=== PATIENT | female | born 1985 | race Caucasian/White ===

== ENCOUNTER 2016-08-08 10:56 | Emergency (ER) | payer OTHER ==
[2016-08-08] MEDS ORDERED: fentaNYL 100 MCG/2 ML INJ IVP ONE (11:53)
[2016-08-08] MEDS ORDERED: ONDANSETRON 4 MG/2 ML VIAL IVP ONE (11:54)
[2016-08-08] MEDS ORDERED: HYDROmorphONE/DILAUDID 1 MG/ML SYR IVP ONE (12:29)
[2016-08-08] MEDS ORDERED: PROPOFOL 200 MG/20 ML VIAL ONE (12:46)
[2016-08-08] MEDS ORDERED: fentaNYL 100 MCG/2 ML INJ ONE (12:49)
--- NOTE | 2016-08-08 12:58 | EDPHY ---
H & P Smoking Status: Never smoked Time Seen by Provider: 08/08/16 11:10 HPI/ROS: CHIEF COMPLAINT: Fall, left ankle pain HISTORY OF PRESENT ILLNESS: 31-year-old female presents to the emergency department after fall at a climbing gym. The patient states that she was climbing and was up about 10 or 15 feet and fell onto the mat injuring her left ankle. She did not hit her head or lose consciousness. She denies pain in her left knee or hip. Denies symptoms in the right lower extremity. Denies headache. Denies neck or back pain. Denies chest pain or difficulty breathing. Denies abdominal pain. REVIEW OF SYSTEMS: Constitutional: No fever, no chills. Eyes: No double or blurry vision. ENT: No sore throat. Respiratory: No cough, no shortness of breath. Cardiac: No chest pain. Gastrointestinal: No abdominal pain, vomiting or diarrhea. Genitourinary: No dysuria. Musculoskeletal: No neck or back pain. Skin: No rashes. Neurological: No headache. (Maribell Mock) Past Medical/Surgical History: LEEP (Maribell Mock) Social History: Single (Maribell Mock) Physical Exam: General Appearance: Alert, no distress. Eyes: Pupils equal and round. Extraocular motions are all intact. ENT: Mouth: Mucous membranes moist. Respiratory: No wheezing, rhonchi, or rales, lungs are clear to auscultation. Cardiovascular: Regular rate and rhythm. Gastrointestinal: Abdomen is soft and nontender, no masses, no rebound or guarding, bowel sounds normal. Neurological: Alert and oriented x 3, cranial nerves II through XII grossly intact Skin: Superficial abrasion to the lateral aspect of the left ankle overlying lateral malleolus. Warm and dry, no rashes. Musculoskeletal: Nontender to palpate along the cervical, thoracic or lumbar spine. Neck is supple. Extremities: Full range of motion and no peripheral edema. Psychiatric: Patient is oriented X 3, there is no agitation. (Maribell Mock) Constitutional: Initial Vital Signs Temperature (C) 36.4 C 08/08/16 11:06 Heart Rate 76 08/08/16 11:06 Respiratory Rate 17 08/08/16 11:06 Blood Pressure 126/92 H 08/08/16 11:06 O2 Sat (%) 100 08/08/16 11:06 O2 Delivery Mode [Post Nasal Cannula Procedure 3rd] O2 Delivery Mode [Post Nasal Cannula Procedure 2nd] O2 Delivery Mode [Post Room Air Procedure 1st] O2 Delivery Mode [Procedural Nasal Cannula 2nd] O2 Delivery Mode [Procedural Non-Rebreather Mask 1st] O2 Delivery Mode [.Immediate Non-Rebreather Mask Pre-Procedure] O2 Delivery Mode Room Air O2 (L/minute) [Post Procedure 2 3rd] O2 (L/minute) [Post Procedure 2 2nd] O2 (L/minute) [Procedural 2nd] 2 O2 (L/minute) [Procedural 1st] 10 O2 (L/minute) [.Immediate Pre- 10 Procedure] O2 (L/minute) 2 Allergies/Adverse Reactions: Penicillins Allergy (Verified 08/08/16 11:06) Home Medications: Medication Instructions Recorded oxyCODONE/APAP 325 [Percocet 1 - 2 tab PO Q4-6PRN PRN #11 tab 08/08/16 5/325] Medical Decision Making - Diagnostics Imaging: I viewed and interpreted images myself - Diagnostics Imaging Results: Imaging Impressions Ankle X-Ray 08/08/16 11:17 Impression: Displaced fracture of the posterior talus with subluxation of the tibia and fibula posteriorly along the posterior margin of the talar dome at the fracture plane. Possible lateral talar dome component of the fracture. Extremity CT 08/08/16 12:31 Impression: Comminuted intra-articular fracture at the talus with intra- articular extension to the talar dome and posterior subtalar joint as above. The fracture has been reduced to near anatomic alignment. There are multiple small loose bodies of fracture fragments 2 to 4 mm. Results called and discussed with Maribell Mock PA-C, on August 08, 2016 at 1338 hours. ED Course/Re-evaluation: The patient was evaluated and managed by the physician's scheduling assistant. My cosignature indicates that I reviewed the chart and I agree with the findings and plan of care as documented. I am the secondary supervising physician. ( Gerda Chávez) 31-year-old female presents to the emergency department with isolated injury to her left ankle. X-rays reveal fracture dislocation of the talus. I spoke with the on-call physician scheduling assistant working with Dr. Beaulieu. Dr. Emery Venegas did not feel comfortable relocating the patient's ankle or managing her care and therefore called Dr. Jose Roberto Louis. Dr. Louis came to the emergency department to evaluate the patient and reduced the patient's ankle with conscious sedation performed by Dr. Gerda Chávez. CT imaging of the ankle was ordered. A splint was placed by Dr. Jose Roberto Louis. The patient will be nonweightbearing. She was given strict instructions about icing and elevating her ankle. She will have close follow-up with Dr. Jose Roberto Louis tomorrow or Saturday to recheck. (Maribell Mock) Differential Diagnosis: Including but not limited to fracture, dislocation, contusion, sprain (Maribell Mock) - Data Points Medications Given: Discontinued Medications Fentanyl (Sublimaze) 50 mcg IVP EDNOW ONE Stop: 08/08/16 11:54 Last Admin: 08/08/16 12:00 Dose: 50 mcg Hydromorphone HCl (Dilaudid) 0.5 mg IVP EDNOW ONE Stop: 08/08/16 12:30 Last Admin: 08/08/16 12:39 Dose: 0.5 mg Ondansetron HCl (Zofran) 4 mg IVP EDNOW ONE Stop: 08/08/16 11:55 Last Admin: 08/08/16 12:01 Dose: 4 mg Propofol (Diprivan) 80 mg IVP EDNOW ONE Stop: 08/08/16 13:04 Last Admin: 08/08/16 12:45 Dose: 80 mg Departure - Departure Disposition: Home, Routine, Self-Care Clinical Impression: Closed left ankle fracture Qualifiers: Encounter type: initial encounter Qualified Code(s): S82.892A - Other fracture of left lower leg, initial encounter for closed fracture Condition: Good Instructions: Ankle Fracture (ED) Additional Instructions: Ice and elevate. Use crutches, do not walk on her left ankle. Follow up with orthopedic surgeon tomorrow or Saturday to recheck. Ibuprofen 600 mg every 8 hours as needed for pain. Referrals: Jose Roberto Louis MD [Medical Doctor] - 1-2 days without fail (Orthopedic surgeon on-call) Stand Alone Forms: Work Limited Duty, Work Excuse Prescriptions: oxyCODONE/APAP 5/325 [Percocet 5/325] 1 - 2 tab PO Q4-6PRN PRN #11 tab PRN Reason: For Moderate To Severe Pain
--- NOTE | 2016-08-08 12:58 | EDPHY ---
PA Addendum - Addendum .: Patient was seen in conjunction with the PA. I personally evaluated the patient. Dr. Louis came to the emergency department for reduction prior to CT imaging. He requests the patient be given conscious sedation to reduce the patient's fracture. Procedure: Procedural sedation. Indication: Left ankle reduction. A pre-sedation evaluation was completed on the patient just prior to the procedure. Patient is an appropriate candidate for procedural sedation with ASA class E. The risks of the sedation were discussed including but not limited to dysrhythmia, need for airway intervention or general anesthesia, disability, ; and verbal consent obtained. A timeout was observed and patient's identity confirmed. The patient was sedated with propofol. The patient was monitored with continuous pulse oximetry, capnography, and alarm security or surveillance monitor. There were no complications and no significant hypoxemia. I remained at the bedside for the sedation. The total time I spent in the procedural sedation was 10 minutes. The patient tolerated the procedure well. No complaints.
[2016-08-08] MEDS ORDERED: PROPOFOL 200 MG/20 ML VIAL IVP ONE (13:03)
[2016-08-08 13:29] VITALS: RESP 16
[2016-08-08 14:24] VITALS: BP 113/76; PULSE 54; TEMP 98.1; O2SAT 97
--- NOTE | 2016-08-09 10:49 | GOP ---
[f rep st] OPERATIVE REPORT DATE OF OPERATION: 08/08/2016 SURGEON: Jose Roberto Louis MD ANESTHESIA: IV propofol performed by the emergency medicine physician. PREOPERATIVE DIAGNOSIS: Left talar fracture-dislocation. POSTOPERATIVE DIAGNOSIS: Left talar fracture-dislocation. PROCEDURE PERFORMED: Closed reduction of left talar body fracture-dislocation, use of fluoroscopy. FINDINGS: INDICATIONS: The patient is a 31-year-old who sustained a fall while climbing, resulting in a displ aced talar body fracture, dislocation pattern. It was recommended that closed reduction be performe d on a somewhat emergent basis. DESCRIPTION OF PROCEDURE: IV propofol was administered by the emergency room physician. Reduction was performed with gentle traction and eversion. Favorable reduction was accomplished and confirmed fluoroscopically. A below-knee splint was then applied. COMPLICATIONS: None. PLAN: A CT scan will be obtained. Definitive operative management would be performed at a later se tting pending improvement of soft tissue swelling. /[id number]/MODL
--- NOTE | 2016-08-09 11:31 | GCON ---
[f rep st] CONSULTATION DATE OF CONSULTATION: 08/08/2016 REASON FOR CONSULTATION: Left ankle injury. HISTORY OF PRESENT ILLNESS: The patient is a 31-year-old who sustained a fall while climbing in an indoor gym. Upon landing, she noted immediate pain with deformity in her ankle. She denies any pre vious problems or injuries relative to her ankle. PHYSICAL EXAMINATION: On examination, her foot is held in a fixed equinovarus deformity. There is moderate swelling. She has significant tenderness to palpation diffusely around her ankle. Distal neurovascular exam was grossly intact. IMAGING: AP and lateral radiographs of her ankle show evidence of a displaced talar body fracture. ASSESSMENT: Left talar body fracture/dislocation. PLAN: Recommended that closed reduction be pursued. If satisfactory closed reduction can be obtain ed, the patient will be splinted and operative treatment delayed. If, however, reduction is not obt ainable, more emergent operative treatment would be necessary. /[id number]/MODL
== END 2016-08-08 14:24 | disposition home or self-care (01) ==
PROC: 0QSMXZZ Reposition Left Tarsal, External Approach (ICD-10-PCS; principal; 2016-08-08)
DX: S92.142A Displaced dome fracture of left talus, initial encounter for closed fracture (principal); W17.89XA Other fall from one level to another, initial encounter; Y99.8 Other external cause status; Y93.39 Activity, other involving climbing, rappelling and jumping off
CPT/HCPCS: 96374; J1170; J2405; J2704; J3010

== ENCOUNTER 2016-08-10 10:08 | Day surgery (SDC) | payer OTHER ==
[2016-08-10] MEDS ORDERED: LIDOCAINE 1% 2 ML INJ ONE (10:30)
[2016-08-10] MEDS ORDERED: BUPIVACAINE 0.5% 30 ML SDV ONE (10:57)
[2016-08-10] MEDS ORDERED: MIDAZOLAM 2 MG/2 ML VIAL ONE (11:34)
[2016-08-10] MEDS ORDERED: fentaNYL 100 MCG/2 ML INJ ONE ×2 (11:35→13:48)
[2016-08-10] MEDS ORDERED: CLINDAMYCIN 600 MG/DEXTROSE/50 ML BAG IV ONE (11:55)
[2016-08-10] MEDS ORDERED: LIDOCAINE 2% 5 ML SDV ONE (11:56)
[2016-08-10] MEDS ORDERED: PROPOFOL 200 MG/20 ML VIAL ONE (11:56)
[2016-08-10] MEDS ORDERED: CLINDAMYCIN 600 MG/DEXTROSE 50 ML IV ONE (12:30)
[2016-08-10] MEDS ORDERED: ONDANSETRON 4 MG/2 ML VIAL ONE (15:02)
--- NOTE | 2016-08-13 02:18 | GOP ---
[f rep st] OPERATIVE REPORT DATE OF OPERATION: 08/10/2016 SURGEON: Jose Roberto Louis MD ANESTHESIA: General plus popliteal and saphenous nerve blocks performed by the anesthesiologist at my request for postoperative pain management. PREOPERATIVE DIAGNOSIS: The left talus fracture. POSTOPERATIVE DIAGNOSIS: The left talus fracture. PROCEDURE PERFORMED: 1. Open reduction, internal fixation, left talus fracture. 2. Intraoperative use of fluoroscopy. FINDINGS: ESTIMATED BLOOD LOSS: Minimal. INDICATIONS: Patient is a 31-year-old, who displays prior sustained fall while climbing, resulting in a talus fracture dislocation. The patient underwent initial closed reduction. Based on the natu re of her injury, it was recommended that a definitive open reduction, internal fixation be pursued. The patient acknowledged she understood the potential risks of the operation including, but not li mited to, bleeding, infection, neurovascular damage leading to loss or limited limb function, maluni on, nonunion, need for hardware removal, development of pain, avascular necrosis, arthritis, along w ith functional limitations despite operative treatment, and anesthetic risks. She acknowledged she understood the potential risks, planned procedure, and postoperative plan well, and had all question s answered prior to surgery. She gave her consent to the operative procedure. DESCRIPTION OF PROCEDURE: Patient was brought to the operating room, after preoperative antibiotics were administered. In preop holding popliteal and saphenous nerve blocks were performed by anesthe siologist at my request for postoperative pain management. General anesthetic was administered. A tourniquet was placed on her left thigh, bump underneath the left hip and shoulder, and her left low er [id number] was prepped and draped in the standard sterile fashion. After Santos wrap exsanguination , tourniquet was inflated to 250. Initial posterolateral approach was utilized based on the fractur e appearance. A longitudinal incision was made along the posterolateral aspect of the ankle. Care was taken to avoid damage to the sural nerve. The interval between the peroneal and the tendons was utilized for exposure. Posterior aspect of the ankle was identified. A Deyvi wire was placed in a posterior-to anterior direction across the fracture and which fluoroscopically was f elt to be reduced. A 2.7 mm screw was then placed in a lag fashion in a driskznpn-xh-aqforydv direc tion. Good placement of the fracture was found fluoroscopically to be now reduced. It was felt deion t the direct visualization of the fracture would be necessary. Screw (with some difficulty) was rem sukhwinder as was the K-wire. A medial approach was utilized. Oblique incision was made just anterior to the medial malleolus, proving slightly on the medial hindfoot. Skin and subcutaneous tissue were s harply incised. The anterior deltoid fibers were incised (there was noted to be some violation of t hese fibers already, however). This allowed for a favorable visualization of the fracture without a need for malleolar osteotomy. Utilizing threaded K-wires and joystick, the fracture was reduced, c onfirming both clinically and fluoroscopically favorable reduction. There were noted to be some fra gmented pieces of full-thickness cartilage off the medial dome of the talus. A 2.7 mm screw was the n placed in a lag fashion from the anteromedial aspect of the talar body directed posteriorly. A se cond incision was then made lateral to the extensor digitorum communis tendons with dissection, marcelo ied down to the talus with tenotomy scissors. This was a very limited incision. A second 2.7 mm sc rew was placed in an rcpkbjff-gf-vwejbyivo direction across the fracture pattern through this incisi on. Fluoroscopic views confirmed favorable hardware and fracture positions. The ankle was taken th rough a range of motion and found to have no evidence of displacement through the range of motion or other issues. Attention was directed towards closure. The deep tissue was closed with 2-0 Vicryl suture in interrupted fashion. Subcutaneous tissue closed with 3-0 Vicryl suture in interrupted fas hion. Skin closed with 4-0 nylon interrupted, vertical mattress sutures. The wounds were dressed w ith sterile Adaptic, 4x4, and Webril, and leg was placed in a below-knee splint. Patient tolerated the procedure well and was taken to recovery room, extubated in stable condition postoperatively. A ll sponge, needle, and instrument counts were reported as correct. DRAINS: None. COMPLICATIONS: None. PLAN: Patient will be discharged home, nonweightbearing on her left lower extremity. /[id number]/MODL
== END 2016-08-10 17:30 | disposition home or self-care (01) ==
LOC: FSGY 10:08
PROVIDERS: ATTEND Orthopaedic Surgery Foot and Ankle Surgery
PROC: 0QSM04Z Reposition Left Tarsal with Internal Fixation Device, Open Approach (ICD-10-PCS; principal; 2016-08-10 11:30)
DX: S92.102A Unspecified fracture of left talus, initial encounter for closed fracture (principal); Y93.31 Activity, mountain climbing, rock climbing and wall climbing; Y92.828 Other wilderness area as the place of occurrence of the external cause; W15.XXXA Fall from cliff, initial encounter
CPT/HCPCS: 28445; C1769; C1713; J2250; J2405; J2704; J3010

== ENCOUNTER → 2017-07-01 | Outpatient (CLI) | payer MEDICAID | LOC: FIMAGING 11:39 | PROVIDERS: ATTEND Advanced Practice Midwife | DX: Z34.02 Encounter for supervision of normal first pregnancy, second trimester (principal); Z3A.21 21 weeks gestation of pregnancy ==

== ENCOUNTER 2017-10-31 09:43 | Inpatient (IN) | payer MEDICAID ==
[2017-10-31] MEDS ORDERED: CITRIC ACID/SODIUM CITRATE 30 ML UDCUP PO ONE (10:14)
[2017-10-31] MEDS ORDERED: ceFAZolin 2 GM/DEXTROSE 100 ML IV ONE (10:14)
[2017-10-31] MEDS ORDERED: LR 500 ML IV ONE (10:14)
--- NOTE | 2017-10-31 10:24 | PDGENHP ---
History and Physical - Chief Complaint Labor, breech - History of Present Illness 32 yo G1 at 38w6d by YEHUDA of 11/08/17 who presented today as transfer from [facility] in early labor with baby known, and confirmed again today, to be breech. Uncomplicated first . Baby known breech since 10/21/17 and declined ECV. Declines ECV attempt again this AM. Allergic to PCN w rash, GBS positive. Presented to [facility] this AM in early labor, hoping baby had flipped. 4cm 100% effaced, US confirmed breech. Anatomy US 07/01/17: Anatomy and fluid WNL, EFW 31%, posterior placenta, CL 4.1cm. Labs: O pos Ab neg Rubella immune HIV NR RPR NR Heb B/C NR GC/C neg Declined aneuploidy screening Glucola 71 GBS pos Declined flu, did get TDaP History Information - Allergies/Home Medication List Allergies/Adverse Reactions: amoxicillin Allergy (Verified 08/09/16 13:38) Rash Penicillins Allergy (Verified 08/09/16 13:38) Rash Home Medications: oxyCODONE/APAP 5/325 [Percocet 5/325] 08/09/16 [Last Taken 05/12/16 22:30] IBUPROFEN 400 mg 08/10/16 [Last Taken 08/10/16 08:30] I have personally reviewed and updated: family history, medical history, social history, surgical history Past Medical History: H/o abn paps, LEEP in 2003, H/o anxiety/depression, Vegan , [address] - Surgical History Additional surgical history: Ankle fx fix, T&A as child - Family History Positive for: non-pertinent - Social History Smoking Status: Never smoked Alcohol Use: None Review of Systems Review of Systems: ROS: 10pt was reviewed & negative except for what was stated in HPI & below Physical Exam Physical Exam: Alert, pleasant. US confirms breech presentation. Belly soft, gravid. Lab Data & Imaging Review Imaging Review: FHR 130s, moderate variability, accels present, no decels. Ctx's q 8-10 minutes Assessment & Plan Assessment: 32 yo G1 at 38w6d presents in early labor, breech. Offered version, declined. Discussed RBA of , agrees - consents signed in person. Mild (rash) allergy to PCN, will use Ancef. Routine orders. Will proceed with PLTCS this AM.
[2017-10-31] MEDS ORDERED: LR 1,000 ML IV SCH (10:30)
--- NOTE | 2017-10-31 10:31 | POSTOPPROG ---
Post Op Note Date of Operation: 10/31/17 Surgeon: Júnior Leger Embroiderer Hand: Keiry Worthy CNM, Maru Del Valle CNM Anesthesiologist: Cosme Henson Anesthesia: Spinal Pre-op Diagnosis: Breech, labor Post-op Diagnosis: Same Procedure: PLTCS Findings: FHR was noted to be 80bpm while prepping, normal anatomy Inf/Abcess present in the surg proc area at time of surgery?: No EBL: 700cc Total fluids administered: 1900cc Complications: None Specimen(s): Cord blood gasses sent, placenta not sent
[2017-10-31 10:32] LABS: PLATELET COUNT 246 10^3/uL (150-400)
--- NOTE | 2017-10-31 10:33 | OBDEL ---
Info Type: Primary Presentation at Delivery: Breech L&D Analgesia/Anesthesia Type: Spinal GBS+: Yes Indications for Delivery: Spontaneous Labor Vaginal Delivery - Labor and Delivery Onset of Contractions Date: 10/31/17 Onset of Contractions Time: 00:00 Operative Report - Delivery Pre-op Diagnoses: Breech, labor Post-op Diagnoses: Same History of Prior Section: No Nulliparous Prior to Delivery: Yes Indications for Current Section: Breech Procedure: Unscheduled Surgeon: Júnior Leger Mechanical Shovel Operator: Maru Del Valle Anesthesiologist: Vu Henson Complications: None Findings: FHR found to be in the 80s after spinal. W/ delivery vigorous baby girl, small , small uterus, small placenta. Normal cord. Normal anatomy otherwise. IV Fluid (ml): 1,900 EBL: 700 Data YEHUDA: 11/08/17 Gestational Age: 38 week(s) and 6 day(s) [place] Delivery Date: 10/31/17 Delivery Time: 11:31 Sex of Infant: Female [place] Weight (gm): 2254 g Score (1 Min): 8 Score (5 Min): 9 ICD10 Worksheet Patient Problems: Problems Problem Status Onset Breech presentation Acute Labor abnormality Acute - ICD10 Problem Qualifiers (1) Breech presentation Qualifiers: Fetus number: single or unspecified fetus Qualified Code(s): O32.1XX0 - Maternal care for breech presentation, not applicable or unspecified (2) Labor abnormality
[2017-10-31] MEDS ORDERED: morphINE PF 5 MG/10 ML INJ ONE (10:35)
[2017-10-31] MEDS ORDERED: fentaNYL 100 MCG/2 ML INJ ONE (10:35)
[2017-10-31] MEDS ORDERED: ONDANSETRON 4 MG/2 ML VIAL ONE ×2 (10:39)
[2017-10-31] MEDS ORDERED: DEXAMETHASONE 4 MG/ML VIAL ONE ×2 (10:39)
[2017-10-31] MEDS ORDERED: OXYTOCIN 100 UNITS/10 ML VIAL ONE (10:54)
[2017-10-31] MEDS ORDERED: MISOPROSTOL 200 MCG TAB ONE (10:56)
[2017-10-31] MEDS ORDERED: PROMETHAZINE HCL 25 MG/ML INJ IVP PRN (13:00)
[2017-10-31] MEDS ORDERED: SIMETHICONE 80 MG TAB CHEW PO PRN (13:00)
[2017-10-31] MEDS ORDERED: oxyCODONE IR 5 MG TAB PO PRN (13:00)
[2017-10-31] MEDS ORDERED: NALOXONE HCL 0.4 MG/ML INJ IVP PRN (13:07)
[2017-10-31] MEDS ORDERED: ONDANSETRON 4 MG/2 ML VIAL IVP PRN (13:07)
[2017-10-31] MEDS ORDERED: PHENYLEPHRINE HCL 100 MCG/ML SYR IVP PRN (13:07)
--- NOTE | 2017-10-31 14:17 | PREANESOB ---
Obstetric Pre-Anesthesia Info - General Info Proposed Procedure: C Section. : 1 Para: 1 YEHUDA: 11/08/17 Gestational Age: 38 week(s) and 6 day(s) - Info Status: Full Term Monitors: External FHR Baseline (bpm): 135 FHR Pattern: Reassuring - Labor Status Indications for Current Section: Breech Labor Epidural: No Anesthesia ROS: Prior general anesthesia. Allergies/Adverse Reactions: Allergy/AdvReac Type Severity Reaction Status Date / Time amoxicillin Allergy Rash Verified 08/09/16 13:38 Penicillins Allergy Rash Verified 08/09/16 13:38 Home Medications: Medication Instructions Recorded oxyCODONE/APAP 5/325 [Percocet 08/09/16 5/325] IBUPROFEN 400 mg 08/10/16 Visit Medications: Generic Name Dose Route Start Last Admin Trade Name Freq PRN Reason Stop Dose Admin Acetaminophen 650 mg 10/31/17 18:00 Tylenol PO 04/29/18 17:59 Q6HRS [facility] Diphenhydramine HCl 25 - 50 mg 10/31/17 13:07 Benadryl Injection IVP 11/01/17 13:06 Q6HRS PRN Itching Docusate Sodium 100 mg 10/31/17 13:00 Colace PO 04/29/18 12:59 BID PRN Constipation Lactated Ringer's 1,000 mls @ 125 mls/hr 10/31/17 10:30 Lr IV 11/01/17 10:29 CONT DILLON Ibuprofen 600 mg 10/31/17 18:00 Motrin PO 04/29/18 17:59 Q6HRS [facility] Ketorolac Tromethamine 30 mg 10/31/17 18:00 Toradol IVP 11/01/17 12:01 Q6HRS [facility] Naloxone HCl 0.4 mg 10/31/17 13:07 Narcan IVP 11/01/17 13:09 PRN PRN respiratory depression Ondansetron HCl 4 mg 10/31/17 13:07 Zofran IVP 11/01/17 13:06 Q4HRS PRN Nausea/Vomiting, Can't Take PO Oxycodone HCl 5 - 10 mg 10/31/17 13:00 Oxycodone Ir PO 11/10/17 12:59 Q4HRS PRN Pain, Severe Promethazine HCl 25 mg 10/31/17 13:00 Phenergan IVP 04/29/18 12:59 Q6HRS PRN Nausea/Vomiting, Use 1st Simethicone 80 mg 10/31/17 13:00 Mylicon PO 04/29/18 12:59 .TIDMEALS AND HS PRN Gas Discontinued Medications Generic Name Dose Route Start Last Admin Trade Name Sri PRN Reason Stop Dose Admin Citric Acid/Sodium Citrate 30 ml 10/31/17 10:14 10/31/17 12:34 Bicitra PO 10/31/17 10:15 Not Given ONCALL ONE Dexamethasone Confirm 10/31/17 10:39 Decadron Injection Administered 10/31/17 10:40 Dose 4 mg .ROUTE .STK-MED ONE Dexamethasone Confirm 10/31/17 10:39 Decadron Injection Administered 10/31/17 10:40 Dose 4 mg .ROUTE .STK-MED ONE Ephedrine Sulfate 10 - 20 mg 10/31/17 13:07 Ephedrine Sulfate IV 10/31/17 14:07 Q5M PRN Hypotension Fentanyl Confirm 10/31/17 10:35 Sublimaze Administered 10/31/17 10:36 Dose 100 mcg .ROUTE .STK-MED ONE Cefazolin Sodium/Dextrose 100 mls @ 200 mls/hr 10/31/17 10:14 10/31/17 10:49 Ancef 2 Gm IV 10/31/17 10:43 100 mls ONCALL ONE Administration Protocol Lactated Ringer's 500 mls @ 0 mls/hr 10/31/17 10:14 Lr IV 10/31/17 10:15 ONCE ONE As Directed Misoprostol Confirm 10/31/17 10:56 Cytotec Administered 10/31/17 10:57 Dose 1,000 mcg .ROUTE .STK-MED ONE Morphine Sulfate Confirm 10/31/17 10:35 Morphine Pf 5 Mg/10 Ml Administered 10/31/17 10:36 Dose 5 mg .ROUTE .STK-MED ONE Ondansetron HCl Confirm 10/31/17 10:39 Zofran Administered 10/31/17 10:40 Dose 4 mg .ROUTE .STK-MED ONE Ondansetron HCl Confirm 10/31/17 10:39 Zofran Administered 10/31/17 10:40 Dose 4 mg .ROUTE .STK-MED ONE Oxytocin Confirm 10/31/17 10:54 Pitocin Administered 10/31/17 10:55 Dose 100 units .ROUTE .STK-MED ONE Phenylephrine HCl 100 mcg 10/31/17 13:07 Neosynephrine IVP 10/31/17 14:07 Q1M PRN Hypotension - Anesthesia History Response to Local Anesthetics: Normal Anesthesia & Operative History: No Prior Problems Family Anesthesia History: Negative - Social History Substance Use/Abuse: Denies - Vital Signs Latest Vital Signs (Nursing): Temp Pulse Resp BP Pulse Ox 36.2 C 46 L 16 127/79 H 100 10/31/17 13:41 10/31/17 13:41 10/31/17 13:41 10/31/17 13:41 10/31/17 13:30 Blood Pressure: 115/88 Heart Rate: 66 Respiratory Rate: 18 Height/Weight (Nursing): Height 157.48 cm Weight 65.771 kg - Focused Exam Neck exam: FROM Mallampati Score: Class 1 Mouth exam: normal dental/mouth exam Pulmonary: no respiratory distress Cardiovascular: regular rate and rhythym Labs: 10/31/17 10:15 Patient ABO/Rh O POSITIVE 10/31/17 10:15 - Plan Anesthetic Plan: SAB Consent Signed and on Chart: Yes Patient/Guardian Understands and Agrees to Plan: Yes Urgent/Emergent Case: July chinchilla completed preop but documented later for safe timely pt care
--- NOTE | 2017-10-31 14:18 | POSTANESTH ---
Post Anesthetic Evaluation Cardiovascular Status: Normal, Stable, Similar to Pre-Op Cond Respiratory Status: Normal, Stable, Similar to Pre-op Cond. Level of Consciousness/Mental Status: Can Participate in Eval, Alert and Oriented Pain Control: Adequate, Prn Tx Ordered Nausea/Vomiting Control: Adequate, Prn Tx Ordered Complications Possibly Related to Anesthesia: None Noted
[2017-10-31] MEDS: KETOROLAC 30 MG/1 ML SDV IVP SCH ×2 (16:05→22:04)
[2017-10-31] MEDS: IBUPROFEN 600 MG TAB PO SCH ×2 (17:59→23:45)
--- NOTE | 2017-10-31 18:12 | SUROPNOTE ---
[facility] Operative Report - Surgery Date of Operation: 10/31/17 Surgeon: Júnior Leger Cnc Operator Machinist: Keiry Worthy CNM, Maru eDl Valle CNM Anesthesiologist: Cosme Henson Anesthesia: Spinal Pre-op Diagnosis: Breech, labor Post-op Diagnosis: Same Procedure: PLTCS Findings: FHR was noted to be 80bpm while prepping, normal anatomy Inf/Abcess present in the surg proc area at time of surgery?: No EBL: 700cc Total fluids administered: 1900cc Complications: None Specimen(s): Cord blood gasses sent, placenta not sent Technique: The patient was taken to the OR where spinal was placed and anesthesia found to be adequate. The patient was then positioned supine with a leftward tilt and a time-out was performed. When FHR was auscultated just prior to prepping it was found to be in the 80's. Her NST in the prior and FHR tracing ever since arrival had been normal and reassuring, so this was a new findings after spinal. We moved as quickly as was safely possible to begin her procedure once we identified that FHR. She was given weight-based antibiotics prior to skin incision. The abdomen was prepped and draped in normal sterile fashion. A Pfannenstiel skin incision was made with the scalpel and carried down to the fascia. The fascia was incised in the midline and the incision extended bilaterally sharply with scissors. The fascia was dissected off of the underlying rectus muscles superiorly and inferiorly also sharply using scissors. The rectus were in the midline and the peritoneum identified and entered bluntly without issue. The peritoneal incision was extended and the bladder blade was then placed. The vesicouterine junction was identified and a bladder flap created sharply and developed bluntly. A transverse incision was made with the scalpel in the lower uterine segment and extended with cephalad and caudad traction on the incision edges. The complete breech with two feet were encountered and easily elevated out of the pelvis and delivered atraumatically, followed by the body and head using atraumatic breech delivery maneuvers. The nose and mouth were bulb suctioned. We did wait for 60 seconds before clamping and cutting the cord and then the was handed to pediatric staff. Cord blood gases were sent and the placenta was not sent to pathology. The uterus was then exteriorized and carefully wiped of all debris. The uterus was closed in two layers - the first layer was running with 180 0-vloc and the second a vertical imbricating layer using 0-vicryl. The gutters were cleared of all clots. The uterine incision was reinspected and found to be hemostatic after placement of additional figure of eight sutures of 3-0 vicryl. The uterus was then returned to the abdomen. The fascia was elevated and the rectus muscles and subcutaneous tissues were found to be hemostatic. The fascia was closed with a running 0-Vicryl - single suture. The subcutaneous tissues were irrigated and hemostasis obtained. The subcutaneous space was closed with interrupted sutures of 2-0 vicryl. The skin was closed with 4-0 vloc undyed and then covered with Medipore dressing. The patient tolerated the procedure and was taken to recovery in stable condition. Lap, needle, sponge, and instrument count were announced as correct times two. I was present and scrubbed for the entire case.
[2017-10-31] MEDS: ACETAMINOPHEN 325 MG TAB PO SCH ×2 (18:22→23:45)
[2017-11-01] MEDS: KETOROLAC 30 MG/1 ML SDV IVP SCH ×2 (03:43→09:58)
[2017-11-01] MEDS: IBUPROFEN 600 MG TAB PO SCH ×4 (06:00→22:08)
[2017-11-01] MEDS: ACETAMINOPHEN 325 MG TAB PO SCH ×4 (06:00→23:44)
[2017-11-01] MEDS: DOCUSATE SODIUM 100 MG CAP PO PRN (09:59)
[2017-11-01] MEDS: IRON POLYSAC/IRON HEME 28 MG TAB PO SCH (14:05)
--- NOTE | 2017-11-01 17:28 | OBPP ---
Progress Note Assessment/Plan: Assessment: POD 1 s/p primary C/S doing well anemia Plan: Routine care Iron daily 11/01/17 17:25 Subjective/ Course: 11/01/17 17:26 Pt doing well. Pain has been under good control until approx last hour and slowly creeping up. Has only had Toradol and recently ibu. Been able to urinate fine but feels a bit tender. bld is lessened. baby has made good attempts with latching. No nausea and stephanie reg diet. Objective: 11/01/17 05:45 Patient ABO/Rh O POSITIVE 10/31/17 10:15 Temp Pulse Resp BP Pulse Ox 37.2 C 52 L 18 100/65 98 11/01/17 12:02 11/01/17 12:02 11/01/17 12:02 11/01/17 12:02 11/01/17 12:02 Uterine Position/Fundal Height: Umbilicus -1 Uterine Tone: Firm Physical Exam - Physical Exam Abdomen: non-tender (approp post op tenderness), soft, dressing (CDI) Extremities: non-tender, pedal edema (minimal) Skin: normal color, warm/dry Neuro/Psych: alert, normal mood/affect
[2017-11-02] MEDS: IBUPROFEN 600 MG TAB PO SCH ×4 (04:14→22:05)
[2017-11-02] MEDS: ACETAMINOPHEN 325 MG TAB PO SCH ×3 (05:48→18:12)
[2017-11-02] MEDS: FERRO-SEQUELS 65 MG TAB.ER PO SCH (10:07)
[2017-11-02] MEDS: IRON POLYSAC/IRON HEME 28 MG TAB PO SCH (10:07)
--- NOTE | 2017-11-02 12:04 | OBPP ---
Progress Note Assessment/Plan: Assessment: [id number] s/p primary c/s for breech POD#2 anemia Plan: Routine PO care ambulate support PRN start PO iron plan d/c home 24-48 hours 11/02/17 12:02 Subjective/ Course: 11/01/17 17:26 Pt doing well. Pain has been under good control until approx last hour and slowly creeping up. Has only had Toradol and recently ibu. Been able to urinate fine but feels a bit tender. bld is lessened. baby has made good attempts with latching. No nausea and stephanie reg diet. 11/02/17 12:03 Pt doing well. Denies any severe pain or heavy bleeding. She is ambulating and voiding without difficulty. She is taking ibuprofen and oxy (PRN). She is without difficulty. Objective: 11/01/17 05:45 Patient ABO/Rh O POSITIVE 10/31/17 10:15 Temp Pulse Resp BP Pulse Ox 36.8 C 60 16 114/73 97 11/02/17 09:24 11/02/17 09:24 11/01/17 23:50 11/02/17 09:24 11/02/17 09:24 Uterine Position/Fundal Height: Umbilicus -1, Midline Uterine Tone: Firm Physical Exam - Physical Exam General Appearance: WD/WN, alert, no apparent distress Neck: supple Respiratory: lungs clear, normal breath sounds Cardiac/Chest: regular rate, rhythm Abdomen: non-tender, soft, incision (healing well, well approximated, no erythema, no drainage) Extremities: pedal edema Skin: normal color, warm/dry Neuro/Psych: alert, normal mood/affect, oriented x 3
[2017-11-02] MEDS: FERROUS SULFATE 325 MG TAB PO SCH ×3 (13:01→21:34)
[2017-11-02] MEDS: DOCUSATE SODIUM 100 MG CAP PO PRN (21:32)
[2017-11-03] MEDS: ACETAMINOPHEN 325 MG TAB PO SCH ×3 (00:03→15:09)
[2017-11-03] MEDS: IBUPROFEN 600 MG TAB PO SCH ×3 (04:37→16:17)
[2017-11-03] MEDS: FERRO-SEQUELS 65 MG TAB.ER PO SCH (09:24)
[2017-11-03] MEDS: FERROUS SULFATE 325 MG TAB PO SCH (10:29)
[2017-11-03] MEDS: IRON POLYSAC/IRON HEME 28 MG TAB PO SCH (10:30)
[2017-11-03 10:39] VITALS: BP 116/79
--- NOTE | 2017-11-03 11:18 | OBPP ---
Progress Note Assessment/Plan: Assessment: [id number] s/p primary c/s for breech POD#3 anemia Plan: Routine PO care ambulate support PRN start PO iron plan d/c home today Subjective/ Course: Doing well this AM. BF going well, pain controlled. Would like to go home. Objective: 11/01/17 05:45 Patient ABO/Rh O POSITIVE 10/31/17 10:15 Temp Pulse Resp BP Pulse Ox 36.4 C 70 20 116/79 92 11/03/17 08:00 11/03/17 08:00 11/03/17 08:00 11/03/17 08:00 11/03/17 08:00 Uterine Position/Fundal Height: At Umbilicus Uterine Tone: Firm Physical Exam - Physical Exam Abdomen: incision (CDI no s/sx of infx)
--- NOTE | 2017-11-03 12:10 | OBGCSDC ---
General Delivery Information - General Info : 1 Para: 1 Abortions: 0 Type: Primary L&D Analgesia/Anesthesia Type: Spinal Admission Date: 10/31/17 Labs: Patient ABO/Rh O POSITIVE 10/31/17 10:15 Hct 32.0 % (38.0-47.0) L 11/01/17 05:45 - Hospital Course : 11/01/17 17:26 Pt doing well. Pain has been under good control until approx last hour and slowly creeping up. Has only had Toradol and recently ibu. Been able to urinate fine but feels a bit tender. bld is lessened. baby has made good attempts with latching. No nausea and stephanie reg diet. 11/02/17 12:03 Pt doing well. Denies any severe pain or heavy bleeding. She is ambulating and voiding without difficulty. She is taking ibuprofen and oxy (PRN). She is without difficulty. - Delivery Providers Surgeon: Júnior Leger Design/Animation Instructor: Maru Del Valle Anesthesiologist: Vu Henson - Delivery Indications for Current Section: Breech Surgical Procedures: Unscheduled Intra-op Complications: None EBL: 700 [place] Data YEHUDA: 11/08/17 Gestational Age: 41 week(s) and 6 day(s) [place] Delivery Date: 10/31/17 Delivery Time: 11:31 Sex of : Female Ly[place] Weight (gm): 2254 g Score (1 Min): 8 Score (5 Min): 9 Discharge Information - Discharge Information Condition: Good Instruction/Follow Up: See Instruction Sheet, Two Weeks, Four Weeks, Six Weeks
== END 2017-11-03 16:19 | disposition home or self-care (01) | DRG 540 ==
LOC: FLD 09:43 → FOB 14:13
PROVIDERS: ADMIT Obstetrics & Gynecology; ATTEND Obstetrics & Gynecology
PROC: 10D00Z1 Extraction of Products of Conception, Low, Open Approach (ICD-10-PCS; principal; 2017-10-31)
DX: O32.1XX0 Maternal care for breech presentation, not applicable or unspecified (principal); O60.23X0 Term delivery with preterm labor, third trimester, not applicable or unspecified; Z37.0 Single live birth; Z3A.38 38 weeks gestation of pregnancy; O99.03 Anemia complicating the puerperium; D64.9 Anemia, unspecified
CPT/HCPCS: J0690; J1100; J1885; J2274; J2405; J2590; J3010